=== PATIENT | male | born 1995 | race Caucasian/White ===

== ENCOUNTER → 2017-05-29 | Outpatient (CLI) | payer BC ==
--- NOTE | 2017-05-29 16:48 | DIAGNOSTIC IMAGING REPORT ---
R KNEE 4 OR MORE CLINICAL HISTORY: RIGHT KNEE PAIN pain COMPARISON: None. DISCUSSION: The bones and joint spaces appear intact. There is no evidence of fracture, dislocation or bony disease. Small bony exostosis adjacent to the medial femoral epicondyles IMPRESSION: No acute process. Benign bony exostosis medial femoral condyle The above report was generated using voice recognition software. It may contain grammatical, syntax or spelling errors. Electronically signed by: Ramírez Parr M.D. 05/29/2017 4:47 PM Dictated Date/Time: 05/29/2017 4:45 PM
== END | disposition home or self-care (01) ==
LOC: C.RDSM 10:44
PROVIDERS: ATTEND Family Medicine
DX: M25.561 Pain in right knee (principal); M89.8X6 Other specified disorders of bone, lower leg

== ENCOUNTER → 2017-07-27 | Outpatient (CLI) | payer BC, OTHER ==
--- NOTE | 2017-07-27 13:28 | DIAGNOSTIC IMAGING REPORT ---
RIGHT KNEE 2 VIEWS CLINICAL HISTORY: Right knee pain and swelling. FINDINGS: AP and crosstable lateral views of the right knee are compared to study dated 05/29/2017. MRI of the knee from an outside institution dated 06/11/2017. The skeletal structures are well mineralized. No fracture is seen. The joint spaces of the knee are well-maintained. A small osteochondroma is again seen arising from the medial femoral condyle. No joint effusion is identified. The overlying soft tissues are within normal limits. IMPRESSION: 1. No acute bony abnormality is identified in the right knee. 2. An osteochondroma is again seen arising superiorly from the medial femoral condyle. There was edema within the vastus medialis muscle surrounding the osteochondroma on the recent MRI. Electronically signed by: Yuri Canales M.D. 07/27/2017 1:27 PM Dictated Date/Time: 07/27/2017 1:24 PM
== END | disposition home or self-care (01) ==
LOC: C.RDSM 13:15
PROVIDERS: ATTEND Family Medicine
DX: M25.561 Pain in right knee (principal)